=== PATIENT | male | born 1940 | race Caucasian/White ===

== ENCOUNTER 2018-08-23 11:44 | Inpatient (IN) | payer OTHER ==
[~2018-08-23] VITALS: Ht 160 cm; Wt 75.3 kg
[2018-08-23] MEDS ORDERED: LISINOPRIL10 MG PO (12:21)
[2018-08-23] MEDS ORDERED: OMEPRAZOLE20 MG PO (12:22)
[2018-08-23] MEDS ORDERED: ZANTAC150 M3 PO (12:22)
[2018-08-23] MEDS ORDERED: ZOCOR20 MG PO (12:22)
== END 2018-08-28 16:00 | disposition home or self-care (01) | DRG 348 ==
LOC: O/R 08-27 06:00 → SURH 08-27 06:00
PROVIDERS: ADMIT Surgery
PROC: 0DBP7ZZ Excision of Rectum, Via Natural or Artificial Opening (ICD-10-PCS; principal; 2018-08-27 11:30)
DX: D12.8 Benign neoplasm of rectum (principal); K62.5 Hemorrhage of anus and rectum; K57.32 Diverticulitis of large intestine without perforation or abscess without bleeding; K63.5 Polyp of colon

== ENCOUNTER 2020-02-06 07:04 | Day surgery (SDC) | payer OTHER ==
[~2020-02-06 07:04] MED LIST: LISINOPRIL10 MG PO; OMEPRAZOLE20 MG PO; ZANTAC150 M3 PO; ZOCOR20 MG PO
== END 2020-02-06 11:05 | disposition home or self-care (01) ==
LOC: AMB-ENDOS 07:04
PROVIDERS: ATTEND Surgery
DX: D12.8 Benign neoplasm of rectum (principal); Z20.828 Contact with and (suspected) exposure to other viral communicable diseases